=== PATIENT | male | born 1945 | race Caucasian/White ===

== ENCOUNTER 2017-02-02 09:57 | Emergency (ER) | payer MEDICARE, BC ==
[~2017-02-02] VITALS: Ht 182.9 cm; Wt 125.0 kg
[2017-02-02 10:51] VITALS: BP 143/61
== END 2017-02-02 11:24 | disposition home or self-care (01) ==
LOC: ED 09:57
PROC: 0HQ1XZZ Repair Face Skin, External Approach (ICD-10-PCS; principal; 2017-02-02)
DX: S00.83XA Contusion of other part of head, initial encounter (principal); S50.11XA Contusion of right forearm, initial encounter; S80.01XA Contusion of right knee, initial encounter; S01.111A Laceration without foreign body of right eyelid and periocular area, initial encounter; S80.211A Abrasion, right knee, initial encounter; W10.9XXA Fall (on) (from) unspecified stairs and steps, initial encounter; Y93.01 Activity, walking, marching and hiking; Y92.009 Unspecified place in unspecified non-institutional (private) residence as the place of occurrence of the external cause

== ENCOUNTER 2017-02-07 12:17 | Emergency (ER) | payer MEDICARE, BC | END 2017-02-07 13:37 | disposition left against medical advice (07) | LOC: ED 12:17 → LWOBS 12:50 | DX: Z91.19 Patient's noncompliance with other medical treatment and regimen (principal) ==